=== PATIENT | male | born 2000 | race African-American/Black ===

== ENCOUNTER 2023-12-23 11:21 | Outpatient (AMB) | payer OTHER, SELFPAY ==
--- NOTE | 2023-12-23 12:02 | AM.OFFWIN_ITS ---
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 He states he has not used them in a couple of years but when he played football in high school, he would use an inhaler when he needed to. He states that lately after he works out at the gym mostly after running he feels that same sensation of chest tightness and some wheezing. He states he does not have a primary care doctor at this time but he did make an appointment however that appointment is not until early 2024. He is asking for an inhaler today. States he has similar how to use the inhaler and when to use it based on his previous experience. PFSH Social History Patient Tobacco Use Status: Never used Tobacco Review of Systems Const All systems reviewed & are unremarkable except as noted in HPI and below Physical Exam Vital Signs: Last Vital Signs Temp 97.8 F 12/23/23 12:08 Pulse 61 12/23/23 12:08 BP 118/70 12/23/23 12:08 Pulse Ox 99 12/23/23 12:08 BMI result Body Mass Index 25.8 Const General: cooperative, healthy appearing, comfortable, no acute distress and well developed Orientation/consciousness: patient oriented x3 Limitations: no limitations HEENT Head: Yes normal to inspection Eyes General: appearance normal, both eyes and all related structures Neck Neck: Yes normal visual inspection and Yes full ROM Resp Effort & Inspection: normal respiratory effort and able to speak in complete sentences Skin General skin exam: no rashes or lesions noted Neuro General: patient oriented x3 Extrem General: Yes normal to inspection Assessment & Plan Assessment & Plan (1) History of asthma: Code(s): Z87.09 - Personal history of other diseases of the respiratory system Plan: Sent prescription for inhaler with 2 refills for patient, did reinforce that he keep the appointment with his PCP, reviewed how to use the inhaler and when to use it. Patient understands and agrees with plan (2) Feeling of chest tightness: Code(s): R07.89 - Other chest pain Plan: See above Plan See above Medications: New albuterol sulfate 90 mcg/actuation 2 puffs inhalation Q6H 8.5 grams 2RF shortness of breath or wheezing or cough Coding Level of Care Code New Pt Level 3 (59218) Diagnoses History of asthma Z87.09 Feeling of chest tightness R07.89
[2023-12-23 12:08] VITALS: BP 118/70; PULSE 61; TEMP 36.6; O2SAT 99; BMI 25.8
== END 2023-12-23 12:54 | disposition home or self-care (01) ==
PROVIDERS: Visit Provider Physician Assistant
DX: R07.89 Other chest pain (principal); Z87.09 Personal history of other diseases of the respiratory system
CPT/HCPCS: 99203